=== PATIENT | male | born 1980 | race Caucasian/White ===

== ENCOUNTER 2018-10-17 21:42 | Emergency (ER) | payer SELFPAY ==
[~2018-10-17] VITALS: Ht 180.3 cm; Wt 80.2 kg
--- NOTE | 2018-10-17 22:06 | NUR ---
AT BEDSIDE TALKING W/ PT ABOUT POC. PT REPORTS 2-3 TIMES WEEKLY MARIJUANA USE AND THAT HE HAS THESE VOMITING EPISODES A FEW TIMES A YEAR. STATES HE HAS BEEN TOLD BEFORE THAT THESE MIGHT BE RELATED. PT ATTACHED TO CONTINUOUS PULSE OX AT THIS TIME. Addendum: 10/17/18 at 2206 by ANUJA CALL LIGHT IN REACH, SIDE RAIL UP X 1
[2018-10-17] MEDS ORDERED: DIPHENHYDRAMINE 50 MG/ML, 1ML ONE (22:18)
[2018-10-17] MEDS ORDERED: PROCHLORPERAZINE 5 MG/ML, 2ML ONE (22:18)
[2018-10-17] MEDS ORDERED: MORPHINE SULFATE 4 MG/ML, 1ML ONE (22:18)
[2018-10-17 22:24] LABS: BASOPHILS # (AUTO) 0.03 x10^3/uL (0-0.1); BASOPHILS % (AUTO) 0 % (0-1); EOSINOPHILS # (AUTO) 0.02 x10^3/uL (0-0.4); EOSINOPHILS % (AUTO) 0 % (1-7); LYMPHOCYTES # (AUTO) 1.51 x10^3/uL (1-3.4); LYMPHOCYTES % (AUTO) 9 % (22-44); MD NO; MEAN CORPUSCULAR HEMOGLOBIN 31.3 pg (27.5-34.5); MEAN CORPUSCULAR HGB CONC 33.4 g/dL (33.2-36.2); MEAN CORPUSCULAR VOLUME 93.6 fL (81-97); MEAN PLATELET VOLUME 7.7 fL (7.4-10.4); MONOCYTES # (AUTO) 0.59 x10^3/uL (0.2-0.8); MONOCYTES % (AUTO) 4 % (2-9); NEUTROPHILS # (AUTO) 14.11 x10^3/uL (1.8-6.8); NEUTROPHILS % (AUTO) 87 % (42-75); PLATELET COUNT 392 x10^3/uL (130-400); RED BLOOD COUNT 5.65 x10^6/uL (4.38-5.82); RED CELL DISTRIBUTION WIDTH 13.4 % (9.4-14.8)
--- NOTE | 2018-10-17 22:24 | NUR ---
PT ADVISED ON INCREASED FALL RISK D/T MEDCATIONS. ADVISED TO USE CALL LIGHT WHICH IS IN REACH. PT GIVEN EMESIS BAG X 2 D/T EMESIS OF YELLOW BILE. PT CONTINUES TO BE ON PULSE OX W/ SIDE RAILS UP X 2.
[2018-10-17] MEDS ORDERED: PROCHLORPERAZINE 5 MG/ML, 2ML IVPush ONE (22:30)
[2018-10-17] MEDS ORDERED: DIPHENHYDRAMINE 50 MG/ML, 1ML IVPush ONE (22:30)
[2018-10-17] MEDS ORDERED: MORPHINE SULFATE 4 MG/ML, 1ML IVPush PRN (22:30)
[2018-10-17 22:34] LABS: ALANINE AMINOTRANSFERASE 31 U/L (12-78); ALBUMIN 5.3 g/dL (3.4-5.0); ANION GAP 15 mmol/L (5-15); CALCIUM 11.1 mg/dL (8.5-10.1); CHLORIDE 100 mmol/L (98-107); CREATININE 1.75 mg/dL (0.7-1.3)
[2018-10-17 22:36] LABS: ALKALINE PHOSPHATASE 83 U/L (45-117); BILIRUBIN,TOTAL 1.9 mg/dL (0.2-1.0); TOTAL PROTEIN 10.2 g/dL (6.4-8.2)
--- NOTE | 2018-10-17 22:37 | NUR ---
PT RESTING IN BED W/ EVEN RESPIRATIONS, REPORTS RELEIF FROM NAUSEA AND IMPROVED PAIN. NO QUESTIONS OR CONCERNS AT THIS TIME. PT CONTINUES TO BE ON THE PULSE OX, SIDE RAILS UP X 2 AND CALL LIGHT IN REACH.
[2018-10-17] MEDS ORDERED: SODIUM CHLORIDE 0.9% 1,000ML IVBOLUS ONE (23:00)
--- NOTE | 2018-10-17 23:07 | NUR ---
PT CONTINUES TO REST IN BED W/O DISTRESS. VSS. CALL LIGHT IN REACH. SIDE RAILS UP X 2
--- NOTE | 2018-10-17 23:50 | NUR ---
MD AT BEDSIDE TALKING W/ PT ABOUT POC. PT GIVEN WATER FOR PO CHALLENGE. VSS. DENIES PAIN
--- NOTE | 2018-10-17 23:59 | NUR ---
PT CALLING FOR RIDE AND PENDING DISCHARGE AT THIS TIME.
[2018-10-18 00:08] VITALS: BP 133/79
== END 2018-10-18 00:11 | disposition home or self-care (01) ==
LOC: ED 10-18
DX: G43.A0 Cyclical vomiting, in migraine, not intractable (principal); E86.0 Dehydration; F17.200 Nicotine dependence, unspecified, uncomplicated; R10.10 Upper abdominal pain, unspecified
CPT/HCPCS: 36415; 80053; 83690; 85025; 96361; 96374; 96375; 99284; J0780; J1200; J2270; J7030